=== PATIENT | female | born 1960 | race Caucasian/White ===

== ENCOUNTER 2024-02-28 17:10 | Inpatient (IN) | payer OTHER ==
[2024-02-28 18:52] LABS: VENOUS BASE EXCESS 0.1 mmol/L (-2-2); VENOUS O2 SATURATION 76.9 % (70-80); VENOUS PCO2 41.2 mmHg (38-52); VENOUS PH 7.399 (7.310-7.410)
[2024-02-28 18:56] LABS: BASO % 0.2 % (0-2.0); HEMATOCRIT 38.7 % (32.4-45.2); HEMOGLOBIN 12.7 GM/dL (10.7-15.3); MCH 28.5 pg (25.7-33.7); MCHC 32.7 g/dl (32.0-36.0); MEAN CELL VOLUME 87.1 fl (80-96); MEAN PLT VOLUME 8.7 fl (7.5-11.1); MONO % 4.6 % (3.8-10.2); NEUT % 89.2 % (42.8-82.8); PLATELET COUNT 282 10^3/uL (134-434); RBC 4.44 M/mm3 (3.60-5.2); RDW 14.1 % (11.6-15.6); WHITE BLOOD COUNT 13.7 K/mm3 (4.0-10.0)
[2024-02-28 18:58] LABS: EPI CELLS 4 /uL (0-25.1); HYALINE CASTS 0 /uL (0-3.1); URINE APPEARANCE CLEAR; URINE BACTERIA 21 /uL (0-1359); URINE BILIRUBIN NEGATIVE (NEGATIVE); URINE COLOR YELLOW; URINE GLUCOSE (UA) NEGATIVE (NEGATIVE); URINE KETONE NEGATIVE (NEGATIVE); URINE LEUK ESTERASE 2+ (NEGATIVE); URINE NITRITE NEGATIVE (NEGATIVE); URINE PROTEIN NEGATIVE (NEGATIVE); URINE RBC 7 /uL (0-23.9); URINE UROBILINOGEN 0.2 mg/dL (0.2-1.0); URINE WBC 49 /uL (0-25.8)
[2024-02-28] MEDS ORDERED: ACETAMINOPHEN INJECTION 100 ML IVPB ONE (19:04)
[2024-02-28] MEDS ORDERED: ALBUTEROL SO4 2.5/IPRATROPIUM 0.5 INH SOL 3 ML VIAL.NEB. NEB ONE ×2 (19:04→19:05)
[2024-02-28] MEDS: ALBUTEROL SO4 2.5/IPRATROPIUM 0.5 INH SOL 3 ML VIAL.NEB. NEB SCH (19:10)
[2024-02-28] MEDS: ACETAMINOPHEN 1000 MG/100 ML BAG IVPB ONE (19:10)
[2024-02-28 19:16] LABS: POTASSIUM 3.8 mmol/L (3.5-5.1)
[2024-02-28 19:18] LABS: CALCIUM 9.5 mg/dL (8.5-10.1)
[2024-02-28 19:19] LABS: ALBUMIN 4.4 g/dl (3.4-5.0)
[2024-02-28 19:22] LABS: CREATININE 0.8 mg/dL (0.55-1.3)
[2024-02-28 19:23] LABS: BILIRUBIN,TOTAL 0.6 mg/dL (0.2-1); TOT PROT 7.7 g/dl (6.4-8.2)
[2024-02-28 19:36] LABS: INR 1.03 (0.83-1.09); PROTHROMBIN TIME (PATIENT) 11.6 SEC (9.7-13.0)
[2024-02-28 19:39] LABS: ACTIVATED PTT 28.4 SECONDS (25.2-36.5)
[2024-02-28] MEDS ORDERED: CEFTRIAXONE 1 GM/50 ML BAG ONE (19:55)
[2024-02-28] MEDS: CEFTRIAXONE 1 GM in DEXTROSE 5%-WATER - 50 ML IVPB ONE (19:58)
[2024-02-28] MEDS ORDERED: DOCUSATE SODIUM 100 MG CAPSULE (FP) PO PRN (23:14)
[2024-02-29] MEDS: LACTATED RINGERS SOLUTION 1,000 ML/1,000 ML INFUS.BAG IV STA (01:24)
[2024-02-29] MEDS ORDERED: ALBUTEROL SO4 2.5/IPRATROPIUM 0.5 INH SOL 3 ML VIAL.NEB. NEB PRN (05:24)
[2024-02-29] MEDS ORDERED: guaiFENesin/D-METHORPHAN HB 10 ML UNIT-DOSE CUPS ONE (05:57)
[2024-02-29] MEDS ORDERED: ACETAMINOPHEN INJECTION 100 ML IVPB ONE ×2 (06:00→14:53)
[2024-02-29] MEDS: ACETAMINOPHEN 1000 MG/100 ML BAG IVPB PRN (06:03)
[2024-02-29 06:13] LABS: BASO % 0.1 % (0-2.0); EOS % 0.1 % (0-4.5); HEMATOCRIT 36.1 % (32.4-45.2); HEMOGLOBIN 11.5 GM/dL (10.7-15.3); LYMPH % 6.8 % (8-40); MCH 28.3 pg (25.7-33.7); MCHC 31.8 g/dl (32.0-36.0); MEAN CELL VOLUME 88.9 fl (80-96); MEAN PLT VOLUME 8.9 fl (7.5-11.1); MONO % 5.9 % (3.8-10.2); NEUT % 87.1 % (42.8-82.8); PLATELET COUNT 266 10^3/uL (134-434); RBC 4.06 M/mm3 (3.60-5.2); WHITE BLOOD COUNT 19.8 K/mm3 (4.0-10.0)
[2024-02-29 06:25] LABS: POTASSIUM 4.1 mmol/L (3.5-5.1)
[2024-02-29 06:28] LABS: CALCIUM 8.8 mg/dL (8.5-10.1)
[2024-02-29 06:29] LABS: BLOOD UREA NITROGEN 10.6 mg/dL (7-18)
[2024-02-29 06:32] LABS: CREATININE 0.6 mg/dL (0.55-1.3)
[2024-02-29] MEDS: guaiFENesin/D-METHORPHAN TAB.ER.12H PO SCH (06:32)
[2024-02-29] MEDS ORDERED: CEFTRIAXONE 1 GM/50 ML BAG ONE (10:18)
[2024-02-29] MEDS: CEFTRIAXONE 1 GM in DEXTROSE 5%-WATER - 50 ML IVPB SCH (10:24)
[2024-02-29] MEDS ORDERED: HEPARIN NA (PORCINE) 5,000 UNITS/ML 1ML VIAL ONE (14:53)
[2024-02-29] MEDS: HEPARIN NA (PORCINE) 5,000 UNITS/ML 1ML VIAL SQ SCH (15:09)
[2024-02-29] MEDS ORDERED: AZITHROMYCIN IVPB 500 MG/250 ML BAG IVPB ONE (15:54)
[2024-02-29] MEDS: LACTATED RINGERS SOLUTION 1,000 ML/1,000 ML INFUS.BAG IV SCH (16:10)
[2024-02-29] MEDS: AZITHROMYCIN IVPB 500 MG in DEXTROSE 5%-WATER - 250 ML IVPB ONE (16:10)
[2024-02-29 19:49] VITALS: BMI 28.3
[2024-03-01] MEDS: ACETAMINOPHEN 325 MG TABLET (FP) PO PRN (01:24)
[2024-03-01 08:34] LABS: POTASSIUM 4.2 mmol/L (3.5-5.1)
[2024-03-01 08:49] LABS: BASO % 0.3 % (0-2.0); EOS % 0.1 % (0-4.5); HEMATOCRIT 37.1 % (32.4-45.2); HEMOGLOBIN 11.8 GM/dL (10.7-15.3); MCH 28.3 pg (25.7-33.7); MCHC 31.7 g/dl (32.0-36.0); MEAN CELL VOLUME 89.2 fl (80-96); MEAN PLT VOLUME 9.8 fl (7.5-11.1); MONO % 4.7 % (3.8-10.2); NEUT % 78.9 % (42.8-82.8); PLATELET COUNT 272 10^3/uL (134-434); RBC 4.16 M/mm3 (3.60-5.2); RDW 14.1 % (11.6-15.6); WHITE BLOOD COUNT 15.1 K/mm3 (4.0-10.0)
[2024-03-01 08:52] LABS: BLOOD UREA NITROGEN 8.7 mg/dL (7-18); CALCIUM 9.5 mg/dL (8.5-10.1); CREATININE 0.6 mg/dL (0.55-1.3)
[2024-03-01 08:54] LABS: BILIRUBIN,TOTAL 0.4 mg/dL (0.2-1)
[2024-03-01 09:00] LABS: ALBUMIN 3.5 g/dl (3.4-5.0)
[2024-03-01] MEDS: AZITHROMYCIN 250 MG TABLET PO SCH (12:59)
[2024-03-01 22:13] VITALS: RESP 18
[2024-03-02] MEDS: ENOXAPARIN NA (PORCINE) 40 MG/0.4 ML DISP.SYRIN SQ SCH (10:13)
[2024-03-02] MEDS: ALBUTEROL SO4 2.5/IPRATROPIUM 0.5 INH SOL 3 ML VIAL.NEB. NEB SCH (11:48)
[2024-03-03 05:32] VITALS: PULSE 67
[2024-03-03 07:26] LABS: BASO % 0.9 % (0-2.0); EOS % 0.5 % (0-4.5); HEMATOCRIT 33.4 % (32.4-45.2); HEMOGLOBIN 10.9 GM/dL (10.7-15.3); LYMPH % 27.5 % (8-40); MCH 28.7 pg (25.7-33.7); MCHC 32.7 g/dl (32.0-36.0); MEAN CELL VOLUME 87.5 fl (80-96); MEAN PLT VOLUME 9.4 fl (7.5-11.1); MONO % 8.6 % (3.8-10.2); NEUT % 62.5 % (42.8-82.8); PLATELET COUNT 295 10^3/uL (134-434); RBC 3.82 M/mm3 (3.60-5.2); RDW 13.3 % (11.6-15.6); WHITE BLOOD COUNT 6.2 K/mm3 (4.0-10.0)
[2024-03-03 08:06] LABS: N-TERMINAL BNP 299.3 pg/ml (5-125)
[2024-03-03] MEDS ORDERED: ENOXAPARIN NA (PORCINE) 40 MG/0.4 ML DISP.SYRIN SQ SCH (10:00)
[2024-03-03 15:16] VITALS: BP 130/84; TEMP 96.7
== END 2024-03-03 18:12 | disposition home or self-care (01) | DRG 720 ==
LOC: JER 17:10 → JERBED 21:25 → J4W 02-29 18:13
PROVIDERS: ADMIT Internal Medicine; ATTEND Family Medicine
DX: A41.89 Other specified sepsis (principal); J18.9 Pneumonia, unspecified organism; R51.9 Headache, unspecified; B96.4 Proteus (mirabilis) (morganii) as the cause of diseases classified elsewhere; D72.829 Elevated white blood cell count, unspecified; J06.9 Acute upper respiratory infection, unspecified; R05.9 Cough, unspecified; M79.10 Myalgia, unspecified site; R00.0 Tachycardia, unspecified
CPT/HCPCS: 0241U-QW; 36415; 71045-TC-FY; 71250-TC; 80048; 80053; 81003; 82550; 82803; 83605; 83880; 84443; 84484; 85025; 85610; 85730; 86140; 86850; 86900; 86901; 87040; 87086; 87633; 87651; 87899; 93005; 93010; 93306-TC; 94640; 99285-25; J0131; J1644